=== PATIENT | female | born 1950 | race Caucasian/White ===

== ENCOUNTER → 2017-05-03 | Outpatient (CLI) | payer MEDICARE ==
[~2017-05-03] MED LIST: 00186-0370-20 IH; ALBUTEROL1.25 MG/3; AQUAPHOR1 OI1 TP; ASPIRIN 81M81 MG/TA2 PO; ATIVAN; ATIVAN2 MG PO; BUMEX0.5 MG PO; BUMEX2 MG; BUMEX2 MG PO; C-PAP; DEPAKENE 250 MG/1 ML; DEPAKENE250 MG PO; DILAUDID 2MG TAB2 MG PO; DOXYCYCLINE 10100 MG PO; ELAVIL; ELAVIL10 MG PO; EPIPEN 2-PAK1 MG/ML IM; FLONASE NASAL S16 GM NS; FORADIL IH; FUROSEMIDE; IPRATROPIUM BROM3 M1 IH; KEPPRA 500MG500 MG PO; KEPPRA1000 MG PO; KEPPRA750 MG PO; KLOR-CON M2020 MEQ PO; LAMICTAL; LASIX 40MG TABL40 MG PO; LASIX 80MG TABL80 MG PO; LEVAQUIN 750MG750 M1 PO; METOLAZONE; MONODOX100 PO; MUCINEX 60600 MG/TAB PO; MUCINEX DM 30 M1 TE1; NORCO 325 MG-101 TAB PO; NYSTATIN1 POW; OXYGEN; POTASSIUM CHLO10 ME2 PO; PREDNISONE10 MG PO; PREDNISONE20 MG PO; PREVACID; PREVACID 30MG30 M1 PO; REGLAN; REGLAN 10MG10 MG/TAB PO; RT ALBUTER2.5 MG/0.5 IH; RT SPIRIVA18 MCG IH; RYZOLT100 MG PO; SEROQUEL XR200 MG PO; SEROQUEL100 MG PO; SEROQUEL200 MG PO; SPIRIVA; SPIRIVA INH IH; TRAMADOL; TRAMADOL50 MG PO; VICODIN HP 10 PO; ZANTAC; ZANTAC 150MG T150 MG PO; ZANTAC 7575 MG PO; ZAROXOLYN5 MG PO; ZOFRAN 4MG T4 MG/TAB PO
[2017-05-03 17:10] LABS: TRICYCLIC ANTIDEPRESS URINE POSITIVE
== END ==
LOC: COL.LAB 15:11
PROVIDERS: Family Medicine
DX: M54.9 Dorsalgia, unspecified (principal); G89.29 Other chronic pain

== ENCOUNTER 2018-11-26 13:45 | Inpatient (IN) | payer MEDICARE, BC ==
[2018-11-26] VITALS (219 sets, daily range): BP systolic 92–152; BP diastolic 60–78; PULSE 105; TEMP 99.6–100.5; O2SAT 36–100
[~2018-11-26] VITALS: Ht 165.1 cm; Wt 92.8 kg
[2018-11-26 14:14] LABS: ARTERIAL BLD GAS O2 SATURATION 83.2 % (92-100); ARTERIAL BLOOD GAS BASE EXCESS 6.1 (-2-2); ARTERIAL BLOOD GAS HCO3 33.2 meq/L (22-26); ARTERIAL BLOOD GAS PCO2 58.3 mmHg (35-45); ARTERIAL BLOOD GAS pH 7.37 (7.35-7.45)
[2018-11-26 14:15] LABS: ARTERIAL BLOOD GAS PO2 44.4 mmHg (80-100)
[2018-11-26 14:23] LABS: HEMATOCRIT 40.7 % (37.0-47.0); HEMOGLOBIN 12.8 g/dl (12.5-16.0); MEAN CELL VOLUME 101 fl (80.0-100.0); MEAN CORPUSCULAR HEMOGLOBIN 32 pg (27.0-31.0); MEAN CORPUSCULAR HGB CONC 31 g/dl (33.0-37.0); MEAN PLATELET VOLUME 8.9 fl (7.4-10.4); PLATELET COUNT 165 K/mm3 (130-400); RED BLOOD COUNT 4.02 M/mm3 (4.10-5.30); REDCELL DISTRIBUTION WIDTH-CV 15.9 % (11.5-14.5)
[2018-11-26 14:27] LABS: COLLECTION METHOD CATHETER
[2018-11-26 14:31] LABS: ALBUMIN 3.7 gm/dL (3.5-5.0); BILIRUBIN,TOTAL 0.5 mg/dL (0.0-1.0); CALCIUM 8.5 mg/dL (8.4-10.2); CREATININE, serum 0.71 (0.52-1.25); POTASSIUM 3.8 mmol/L (3.4-5.0); TOTAL PROTEIN 7.4 gm/dL (6.4-8.2)
[2018-11-26 14:36] LABS: PROTHROMBIN TIME 11.8 SECONDS (9.7-12.8)
[2018-11-26 14:38] LABS: PARTIAL THROMBOPLASTIN TIME 34.3 SECONDS (26.0-37.0)
[2018-11-26 14:38] LABS: PH 6 (5-8); SQUAMOUS EPITHELIAL 0-2 /hpf; URINE APPEARANCE Clear; URINE BACTERIA Rare /hpf; URINE BILIRUBIN Negative (NEGATIVE); URINE BLOOD Negative (NEGATIVE); URINE COLOR Yellow; URINE GLUCOSE Negative (NEGATIVE); URINE KETONE Negative (NEGATIVE); URINE LEUKOCYTE ESTERASE Negative (NEGATIVE); URINE NITRATE Negative (NEGATIVE); URINE PROTEIN(semi-quant) Negative (NEGATIVE); URINE RBC None Seen /hpf; URINE UROBILINOGEN Negative (NEGATIVE)
[2018-11-26 14:43] LABS: TROPONIN-I 0.015 ng/mL (0.000-0.035)
--- NOTE | 2018-11-26 17:10 | NUR ---
Received patient in ICU room 4. Connected to courtesy booth cashier obtaining serial vitals. Dr Sadler notified of pt's continued low SPO2 and cyanosis. Orders received to repeat ABG and consult Pulm. RT notified. Pt is pulling at lines and tubes and saying she feels fine shes just tired and wants to go home.
[2018-11-26 17:29] LABS: ARTERIAL BLD GAS O2 SATURATION 90.3 % (92-100); ARTERIAL BLD GAS TCO2 CT 36.6; ARTERIAL BLOOD GAS BASE EXCESS 7.3 (-2-2); ARTERIAL BLOOD GAS HCO3 34.7 meq/L (22-26); ARTERIAL BLOOD GAS PCO2 62.1 mmHg (35-45); ARTERIAL BLOOD GAS PO2 57.8 mmHg (80-100); ARTERIAL BLOOD GAS pH 7.37 (7.35-7.45)
--- NOTE | 2018-11-26 17:38 | NUR ---
DR. CHAUDHRY GIVEN ABG RESULTS AT THIS TIME.
--- NOTE | 2018-11-26 17:50 | NUR ---
PT REMAINS ON 15L OXYMASK AT THIS TIME. SEVERAL ATTEMPTS HAVE BEEN MADE BY MYSELF AND RN TO GET PT TO PUT BIPAP BACK ON. AT THIS TIME WE HAVE BEEN UNSUCCESSFUL. BIPAP IS STILL ON STANDBY AND WILL BE ATTEMPTED AGAIN.
--- NOTE | 2018-11-26 19:35 | NUR ---
Bedside report received from PRASHANT Sims. Patient's family at the bedside.
--- NOTE | 2018-11-26 20:00 | NUR ---
Patient resting in bed breathing heavily with paradoxical respirations. Patient can only answer questions shortly as she is too breathless to answer. She is alert and confused. She follows commands but is continually trying to get out of bed. Patient states she has to pee. She has a catheter in place that is draining perfectly. Attempted to redirect patient with RT Amada, but patient keeps trying to exit the bed. She is currently on oxymask at 15L and O2 saturations are sitting between 88-90%. Patient's lungs are very diminished with very little air movement. HR and rhythm are regular and she is tachycardic. Bowel sounds active x4. Peripheral pulses are palpable. Patient has PVD and BLE are discolored with scaling and flaking. There are some open areas around the shins, especially on the left leg. Patient is excoriated under her breasts, barrier cream applied. Patient has small red dots all over her body, unclear what etiology. Patient has some generalized small bruising, various sizes and stages. Patient has some pain in her back, but when her family then asks a few minutes later, she denies having any pain. With the assistance of RT Amada, patient is convinced to wear the BiPAP, her son speaks with her and gets her to say yes. BiPAP placed and is tolerating ok. Will continue to monitor. ABG to be drawn in an hour. Call light within reach.
[2018-11-26 20:13] LABS: ANISOCYTOSIS 1+; BAND 15 % (0-10); BASOPHIL 1 % (0-2); LYMPHOCYTE 10 % (20.0-51.0); NEUTROPHILS 66 % (42.0-75.2); POLYCHROMASIA 1+
[2018-11-26 20:14] LABS: PLATELET ESTIMATE NORMAL (NORMAL)
[2018-11-26 20:57] LABS: TRICYCLIC ANTIDEPRESS URINE POSITIVE
--- NOTE | 2018-11-26 21:00 | NUR ---
Assisted with AGB draw at this time. Patient has spent the past hour being more restless and anxious with the BiPAP on. Patient continually has tried to pull the mask off. Family has been helping keep the mask on her. Will await results and call to Dr. Thomas.
[2018-11-26 21:17] LABS: ARTERIAL BLD GAS O2 SATURATION 95.6 % (92-100); ARTERIAL BLD GAS TCO2 CT 35.7; ARTERIAL BLOOD GAS BASE EXCESS 8.6 (-2-2); ARTERIAL BLOOD GAS HCO3 34.2 meq/L (22-26); ARTERIAL BLOOD GAS PCO2 50.5 mmHg (35-45); ARTERIAL BLOOD GAS PO2 73.2 mmHg (80-100); ARTERIAL BLOOD GAS pH 7.45 (7.35-7.45)
--- NOTE | 2018-11-26 21:35 | NUR ---
Dr. Thomas notified of ABG results. Patient continues to be uncooperative and has removed the BiPAP and is back on 15L OM. Dr. Thomas states he would like Dr. Berry called and notified, but his recommendation is to intubate. Called and discussed this with Dr. Berry. He also agrees to intubate and will come in to the hospital to place a central line. Anesthesia Notified and will be here soon.
--- NOTE | 2018-11-26 21:45 | NUR ---
Dr Berry here at this time and speaks to family. Anesthesia arrives shortly after. Consents for Intubation and Central Line placement obtained from patient's . 2152 - Time out performed. Amada RT and RT Carlee here to assist as well as PRASHANT Rosas. 2154 - Patient prepped for intubation. Anesthesia draws up medications from the RSI kit and gives them himself. Vitals obtained. 2202 - Patient intubated at this time. Vitals are stable 2206 - Intubation complete. Patient is attached to ventilator at this time. Anesthesia signs for medications and leaves. Vitals remain stable. 2207 - All unnecessary staff removed from the room and time out performed for Central line placement by Dr. Berry. All staff present are weaking masks for placement. 2210 - Central line placement begins at this time. Vitals have remained stable. 2230 - Jugular line in place at this time. Vitals continue to remain stable. 2240 - Central line complete at this time. Dressing placed and room cleaned. Radiology notified for stat chest xray. Vitals have remained stable through procedure, but patient is now becoming hypertensive as she wakes up. Will titrate medications for patient's comfort per order.
--- NOTE | 2018-11-26 22:30 | NUR ---
Verbal order from Dr. Berry to increase Propofol drip from 20mcg to 30mcg/kg/min as patient is trying to sit forward on the vent and is fighting the vent.
--- NOTE | 2018-11-26 23:10 | NUR ---
Patient continues to be very agitated on the vent with systolic BP hitting 200's. Dr. Berry gives verbal order to add on precedex drip. Initial bolus given then set at ordered starting rate.
[2018-11-27] VITALS (776 sets, daily range): BP systolic 121–162; BP diastolic 52–75; PULSE 60–87; TEMP 97.3–99.2; O2SAT 85–98
--- NOTE | 2018-11-27 | NUR ---
Patient resting on the vent. Is still intermittently agitated, will continue to titrate drips as ordered. Patient does not appear to be in any pain. Assessment complete. Lung sounds are more audible since the intubation, though she is still very diminished. No other changes from previous exam. Will continue to monitor.
[2018-11-27 00:29] LABS: ARTERIAL BLD GAS O2 SATURATION 96.2 % (92-100); ARTERIAL BLD GAS TCO2 CT 36.4; ARTERIAL BLOOD GAS BASE EXCESS 10.8 (-2-2); ARTERIAL BLOOD GAS PCO2 44.5 mmHg (35-45); ARTERIAL BLOOD GAS PO2 72.9 mmHg (80-100); ARTERIAL BLOOD GAS pH 7.51 (7.35-7.45)
--- NOTE | 2018-11-27 04:00 | NUR ---
Patient resting comfortably on the vent. Assessment complete and no changes from previous exam. Patient showing no signs of pain or distress. Will continue to monitor.
--- NOTE | 2018-11-27 04:26 | NUR ---
PT INTUBATED 11/26/18 AT 2203 WITH MAC 3, 7.5 ETT. 22 AT THE TEETH. INITIAL SETTINGS: 500 VT, 18 RATE, 5 PEEP, 60% FIO2.
--- NOTE | 2018-11-27 05:00 | NUR ---
Sedation vacation started at this time. Propofol and Precedex drips cut in half. Will continue to monitor.
[2018-11-27 05:13] LABS: ARTERIAL BLD GAS O2 SATURATION 96.5 % (92-100); ARTERIAL BLD GAS TCO2 CT 37.3; ARTERIAL BLOOD GAS BASE EXCESS 8.9 (-2-2); ARTERIAL BLOOD GAS HCO3 35.6 meq/L (22-26); ARTERIAL BLOOD GAS PCO2 57.4 mmHg (35-45); ARTERIAL BLOOD GAS PO2 84.7 mmHg (80-100); ARTERIAL BLOOD GAS pH 7.41 (7.35-7.45)
--- NOTE | 2018-11-27 05:50 | NUR ---
Patient is fully awake at this time and trying to get out of bed. She is fighting the vent and hyperventilating. Propofol and precedex increased at this time. Will titrate as needed
[2018-11-27 06:26] LABS: HEMATOCRIT 38.8 % (37.0-47.0); HEMOGLOBIN 12.2 g/dl (12.5-16.0); MEAN CELL VOLUME 100 fl (80.0-100.0); MEAN CORPUSCULAR HEMOGLOBIN 31 pg (27.0-31.0); MEAN CORPUSCULAR HGB CONC 31 g/dl (33.0-37.0); MEAN PLATELET VOLUME 9.7 fl (7.4-10.4); PLATELET COUNT 173 K/mm3 (130-400); RED BLOOD COUNT 3.88 M/mm3 (4.10-5.30); REDCELL DISTRIBUTION WIDTH-CV 15.7 % (11.5-14.5)
[2018-11-27 06:51] LABS: ANION GAP 7 mmol/L (7-16); BLOOD UREA NITROGEN 13 mg/dL (7-17); CALCIUM 7.8 mg/dL (8.4-10.2); CARBON DIOXIDE 36 mmol/L (22-30); CHLORIDE 94 mmol/L (98-107); CREATININE, serum 0.65 (0.52-1.25); GLUCOSE 215 mg/dL (74-106); MAGNESIUM 1.7 mg/dL (1.6-2.3); PHOSPHOROUS 3.8 mg/dL (2.5-4.5); POTASSIUM 3.3 mmol/L (3.4-5.0); SODIUM 137 mmol/L (137-145)
--- NOTE | 2018-11-27 07:00 | NUR ---
BEDSIDE REPORT RECEIVED FROM PRASHANT JACKSON. ALL IV LINES, TUBES, DRIPS, AND VENT SETTINGS REVIEWED. CARE TAKEN OVER AT THIS TIME.
--- NOTE | 2018-11-27 07:18 | NUR ---
Bedside report given to PRASHANT Zurita and PRASHANT Evans. All tubes, lines, and medications confirmed. Transfer of care at this time.
[2018-11-27 07:23] LABS: VALPROIC ACID (DEPAKENE) < 10.0 ug/mL (50.0-100.0)
[2018-11-27 07:42] LABS: BAND 4 % (0-10); EOSINOPHIL 1 % (0-4); LYMPHOCYTE 15 % (20.0-51.0); NEUTROPHILS 77 % (42.0-75.2); PLATELET ESTIMATE NORMAL (NORMAL)
--- NOTE | 2018-11-27 11:00 | NUR ---
WHEN TURNING PATIENT, SHE BECOMES VERY AGITATED. PROPOFOL INCREASED. I HAD TO STAY BEDSIDE WITH PATIENT FOR APPROXIMATELY 10 MINUTES UNTIL SHE CALMED DOWN. SHE WOKE UP FROM TURNING IN AN AGITATED STATE. WHEN I WAS TALKING TO HER TO EXPLAIN HER SITUATION, SHE WAS NOT TRACKING ME WITH HER EYES, NOT RESPONDING TO ANYTHING I WAS SAYING TO HER. SHE JUST CONTINUED TO TRY TO SIT UP AND REACH FOR ET TUBE.
--- NOTE | 2018-11-27 12:00 | NUR ---
HERE AT THIS TIME. HE IS UPDATED ON PLAN OF CARE AND QUESTIONS ANSWERED. SOCIAL WORK NOTIFIED OF HIS ARRIVAL.
--- NOTE | 2018-11-27 13:45 | NUR ---
HIGH SCHOOL MUSIC DIRECTOR student met with the patient (intubated) and the patient's , Rafael cell phone. The patient lives [place] of [place] with Rafael. The patient has a walker that she uses occassionally. The patient receives assistance with ADLs from Rafael. He reports the past two weeks she has refused assistance with ADLs. The patient receives medical care at [facility] in [place] and patient receives medications from [facility] and at times have difficulties affording medications. The patient does not have advanced directives in the EMR. The patient's informed HIGH SCHOOL MUSIC DIRECTOR student in the event that patient is to decline they have chosen a home. [facility] in [place] . career services representative will continue to follow.
--- NOTE | 2018-11-27 15:30 | NUR ---
PATIENT IS AGAIN, QUITE AGITATED WITH TURNING. I INCREASED ALL SEDATION MEDICATIONS AND GAVE PRN PUSH OF VERSED. IT TOOK HER OVER 30 MINUTES TO CALM DOWN AND RELAX BACK INTO A LIGHTLY SEDATED STATE. DAUGHTER AT BEDSIDE AND ASSISTED WITH PATIENT DURING THIS TIME, BY WAY FOR ENCOURAGING WORDS AND HAND HOLDING.
--- NOTE | 2018-11-27 17:00 | NUR ---
SPOKE WITH DR. COVARRUBIAS REGARDING BEING UNABLE TO WEAN PRECEDEX GTT. HE VERBALIZES UNDERSTANDING AND GIVE THE OK TO KEEP PRECEDEX PART OF PATIENT'S MEDICATION REGIMEN.
--- NOTE | 2018-11-27 19:03 | NUR ---
BEDSIDE REPORT GIVEN TO PRASHANT JACKSON. ALL LINES, TUBES, GTTS, AND VENT SETTINGS REVIEWED.
--- NOTE | 2018-11-27 19:30 | NUR ---
Bedside report received from PRASHANT Zurita. All lines, tubes, and medications confirmed. transfer of care at this time.
--- NOTE | 2018-11-27 20:00 | NUR ---
Patient resting comfortably on the vent. No signs of pain or distress. When patients name is called she moves her eyes and blinks, but does not stay awake. Assessment complete. Lungs are clear bilaterally with diminished bases. HR and rhythm are regular with normal S1 and S2 heard. Bowel sounds are hypoactive x4. Patient's OG placement confirmed by auscultation and aspiration of gastric contents. Peripheral pulses palpable in all extremities. Patient continues to have edema. Skin issues remain the same. Patient has no needs at this time. Will continue to monitor.
[2018-11-27 21:40] LABS: ARTERIAL BLD GAS O2 SATURATION 95.7 % (92-100); ARTERIAL BLD GAS TCO2 CT 24.1; ARTERIAL BLOOD GAS BASE EXCESS -1.7 (-2-2); ARTERIAL BLOOD GAS HCO3 22.9 meq/L (22-26); ARTERIAL BLOOD GAS PCO2 37.7 mmHg (35-45); ARTERIAL BLOOD GAS PO2 83.3 mmHg (80-100)
--- NOTE | 2018-11-27 23:15 | NUR ---
Patient is moderately sedated at this time. Will attempt to wean down propofol and precedex.
--- NOTE | 2018-11-27 23:50 | NUR ---
While in patient room, went to bedside and said patient's name, she opens her eyes wide and immediately sits forward on the vent. Tried to calm patient and have her relax back to the bed, but she refuses. Patient is not tracking movement with her eyes or following commands. Patient will not squeeze her left hand when asked. Right hand she tries to squeeze, but becomes too focused on trying to sit up. Propofol and precedex increased. Will continue to monitor.
[2018-11-28] VITALS (783 sets, daily range): BP systolic 121–174; BP diastolic 53–69; PULSE 58–76; TEMP 97.9–99.8; O2SAT 87–100
--- NOTE | 2018-11-28 | NUR ---
Patient continues to be restless, propofol increased again. It takes patient over 10mins to calm back down. Assessment complete. No changes from previous exam. Vitals remain stable. Will continue to monitor. Call light within reach.
--- NOTE | 2018-11-28 01:07 | NUR ---
DUE TO PT ABG TITRATED FIO2 FROM 60% TO 55% IF PT CAN KEEP SATURATION UP WITH FI02 CHANGE WILL KEEP WHERE IT IS. WILL ASSESS PT 02 LEVEL IN THE MORNING WITH THE AM ABG
--- NOTE | 2018-11-28 01:10 | NUR ---
Discussed patient's FIO2 settings with RT Aime. Will attempt to wean patient down. FIO2 dropped to 55%.
--- NOTE | 2018-11-28 04:00 | NUR ---
Patient resting on the vent, but she is awake and shaking profusely. Stayed with patient until she calmed down, closed her eyes, and stopped shaking. Unclear what woke her up. Assessment complete with no changes from previous exam. Vitals obtained and remain stable. Will continue to monitor.
--- NOTE | 2018-11-28 05:00 | NUR ---
Sedation Vacation not performed atpatient has been waking up at her current doses on propofol, precedex, and fentanyl. Will continue to monitor.
[2018-11-28 05:31] LABS: ARTERIAL BLD GAS O2 SATURATION 96.8 % (92-100); ARTERIAL BLD GAS TCO2 CT 30.6; ARTERIAL BLOOD GAS BASE EXCESS 2.7 (-2-2); ARTERIAL BLOOD GAS PCO2 52.1 mmHg (35-45); ARTERIAL BLOOD GAS PO2 91.6 mmHg (80-100); ARTERIAL BLOOD GAS pH 7.36 (7.35-7.45)
[2018-11-28 05:39] LABS: BASO % 0.2 % (0.0-2.0); GRAN # 7.8 (1.4-6.5); GRAN % 85.8 % (42.2-75.2); HEMATOCRIT 38.5 % (37.0-47.0); HEMOGLOBIN 12.1 g/dl (12.5-16.0); LYMPH # 0.5 (1.2-3.4); LYMPH % 5.8 % (20.0-51.0); MEAN CELL VOLUME 101 fl (80.0-100.0); MEAN CORPUSCULAR HEMOGLOBIN 32 pg (27.0-31.0); MEAN CORPUSCULAR HGB CONC 31 g/dl (33.0-37.0); MEAN PLATELET VOLUME 9.7 fl (7.4-10.4); MONO # 0.6 (0.1-0.6); MONO % 6.9 % (1.7-9.3); PLATELET COUNT 184 K/mm3 (130-400); REDCELL DISTRIBUTION WIDTH-CV 15.8 % (11.5-14.5)
[2018-11-28 05:50] LABS: CALCIUM 7.4 mg/dL (8.4-10.2); CREATININE, serum 0.57 (0.52-1.25); MAGNESIUM 2.6 mg/dL (1.6-2.3); PHOSPHOROUS 3.2 mg/dL (2.5-4.5); POTASSIUM 4.2 mmol/L (3.4-5.0)
--- NOTE | 2018-11-28 07:00 | NUR ---
REPORT RECEIVED FROM TIFFANY CERDA. ALL TUBES, LINES, AND VENT SETTINGS REVIEWED. CARE OF PATIENT TAKEN OVER AT THIS TIME.
--- NOTE | 2018-11-28 07:20 | NUR ---
Bedside report given to PRASHANT Evans and PRASHANT Zurita. All lines, tubes, and medications confirmed. Transfer of care at this time.
--- NOTE | 2018-11-28 12:02 | NUR ---
0930-VENT WEANING BEGAN WITH [facility] TEACHER AT BEDSIDE 0945-PROPOFOL PUT ON HOLD PER DR. COVARRUBIAS, PT BECAME VERY AGITATED AND COMBATIVE, TRYING TO KICK RN AT BEDSIDE. ATTEMPTED TO VERBALLY CALM PATIENT WITH NO SUCCESS, PATIENT PULLING AT WRIST RESTRAINTS AND FREQUENTLY TRYING TO SIT UP, PATIENT UNABLE TO FOLLOW VERBAL COMMANDS 1000-PROPOFOL TURNED BACK ON, VENT SETTINGS RETURNED PER DR. COVARRUBIAS VERBAL ORDER
--- NOTE | 2018-11-28 14:30 | NUR ---
PATIENT REPOSITIONED, BECAME AGITATED AND FREQUENTLY TRIED TO SIT UP IN BED. VERBALLY REASSURED AND TRIED TO CALM PATIENT. TOOK 30 MINUTES FOR PATIENT TO REST COMFORTABLY. FAMILY VISITED AT THIS TIME WELL, CONCERNED THAT THEY WERE WORKING HER UP SO LEFT SHORTLY AFTER.
--- NOTE | 2018-11-28 16:18 | NUR ---
PATIENT BP ELEVATED ABOVE 160, SEE FLOWSHEET, PRN GIVEN, SEE EMAR, WILL CONTINUE TO MONITOR
--- NOTE | 2018-11-28 18:14 | NUR ---
SEDATION VACATION ATTEMPTED WITH VENT WEAN EARLIER TODAY. PATIENT CONTINUES TO BECOME AGITATED WITH REPOSITIONING. RECEIVED NEW ORDERS PER DR. DANGELO TO CHANGE VERSED AND SLIDING SCALE INSULIN, SEE EMAR.
--- NOTE | 2018-11-28 21:55 | NUR ---
PT VERY RESTLESS. PT TRYING TO SIT UP AND PULL HER ARMS OUT OF RESTRAINTS. PT REASSURED MULTIPLE TIMES AND ENCOURAGED TO RELAX. SEDATION INCREASED ABLE. WILL CONTINUE TO MONTIOR.
[2018-11-29] VITALS (680 sets, daily range): BP systolic 113–174; BP diastolic 48–66; PULSE 65–93; TEMP 97.8–100; O2SAT 87–98
--- NOTE | 2018-11-29 02:09 | NUR ---
After Pt repositioned she became very restless. Trying to sit up in bed and pull at lines. Propofol increased. Pt still very restless and trying to sit up. Pt also fighting against the ventilator. Prn versed given. Pt now resting comfortably. Will continue to monitor.
--- NOTE | 2018-11-29 04:57 | NUR ---
0355- Pt very agitated. Pt trying to sit up in bed, pull at lines and tubes. This RN and charge entry clerk had help lay back down and tighten restains. Precedex increased. 0405: Pt still very restless. Trying to sit up and fighting the vent. PRN versed given. 0410: Pt finally resting comfortably. Will continue to montior closely.
[2018-11-29 05:06] LABS: ARTERIAL BLD GAS O2 SATURATION 93.6 % (92-100); ARTERIAL BLD GAS TCO2 CT 34.7; ARTERIAL BLOOD GAS BASE EXCESS 7.3 (-2-2); ARTERIAL BLOOD GAS HCO3 33.1 meq/L (22-26); ARTERIAL BLOOD GAS PCO2 51.7 mmHg (35-45); ARTERIAL BLOOD GAS PO2 66.3 mmHg (80-100); ARTERIAL BLOOD GAS pH 7.42 (7.35-7.45)
--- NOTE | 2018-11-29 05:18 | NUR ---
Pt very agitated and restless while on high sedation. Pt moving all extremities. Pt trying to sit up in bed. Pt not able to follow commands or answer yes/no questions. Pt was just given prn versed to get her to calm down. Will endorse to day RN. Will continue to monitor.
[2018-11-29 05:26] LABS: BASO % 0.1 % (0.0-2.0); GRAN # 5.9 (1.4-6.5); GRAN % 82.6 % (42.2-75.2); HEMATOCRIT 37.6 % (37.0-47.0); LYMPH # 0.6 (1.2-3.4); LYMPH % 7.7 % (20.0-51.0); MEAN CELL VOLUME 100 fl (80.0-100.0); MEAN CORPUSCULAR HEMOGLOBIN 32 pg (27.0-31.0); MEAN CORPUSCULAR HGB CONC 32 g/dl (33.0-37.0); MEAN PLATELET VOLUME 10.5 fl (7.4-10.4); MONO # 0.6 (0.1-0.6); MONO % 8.2 % (1.7-9.3); PLATELET COUNT 158 K/mm3 (130-400); RED BLOOD COUNT 3.78 M/mm3 (4.10-5.30); REDCELL DISTRIBUTION WIDTH-CV 15.8 % (11.5-14.5)
--- NOTE | 2018-11-29 05:29 | NUR ---
PT DOES NOT QUALIFY FOR WEANING TRIAL HER FI02 IS 55%. PT IS ON DOCUMENTED SETTINGS AND IS TESS WELL. SEDATION VACATION WILL NOT BE DONE PATIENT BECOME TO AGITATED. WILL NOTIFY DAY SHIFT RT AND WILL CONTINUE TO MONITOR AND ASSESS PT FOR THE TIME BEING.
[2018-11-29 05:39] LABS: CALCIUM 7.6 mg/dL (8.4-10.2); CREATININE, serum 0.57 (0.52-1.25); MAGNESIUM 2.4 mg/dL (1.6-2.3); PHOSPHOROUS 2.7 mg/dL (2.5-4.5); POTASSIUM 3.7 mmol/L (3.4-5.0)
--- NOTE | 2018-11-29 07:16 | NUR ---
PEEP DECREASED AT THIS TIME WELL FIO2 PER DR. COVARRUBIAS AT BEDSIDE.
--- NOTE | 2018-11-29 07:21 | NUR ---
PT ON TRIAL OF SIMV AT THIS TIME PER DR. COVARRUBIAS
[2018-11-29 16:34] LABS: CALCIUM 8.1 mg/dL (8.4-10.2); CREATININE, serum 0.58 (0.52-1.25); MAGNESIUM 2.3 mg/dL (1.6-2.3); PHOSPHOROUS 2.7 mg/dL (2.5-4.5); POTASSIUM 3.4 mmol/L (3.4-5.0)
[2018-11-30] VITALS (984 sets, daily range): BP systolic 100–135; BP diastolic 49–66; PULSE 67–92; TEMP 98.5–99.8; O2SAT 55–100
--- NOTE | 2018-11-30 02:45 | NUR ---
HOLD INSULIN FOR 30 MINS PER PROTOCOL. WILL RESTART AT 0315 AT 3.5 UNITS PER HOUR.
[2018-11-30 05:14] LABS: BASO % 0.1 % (0.0-2.0); GRAN # 6.8 (1.4-6.5); GRAN % 78.9 % (42.2-75.2); HEMATOCRIT 40.3 % (37.0-47.0); HEMOGLOBIN 12.9 g/dl (12.5-16.0); LYMPH # 0.7 (1.2-3.4); LYMPH % 8.6 % (20.0-51.0); MEAN CELL VOLUME 100 fl (80.0-100.0); MEAN CORPUSCULAR HEMOGLOBIN 32 pg (27.0-31.0); MEAN CORPUSCULAR HGB CONC 32 g/dl (33.0-37.0); MONO % 11.6 % (1.7-9.3); PLATELET COUNT 173 K/mm3 (130-400); RED BLOOD COUNT 4.04 M/mm3 (4.10-5.30); REDCELL DISTRIBUTION WIDTH-CV 15.9 % (11.5-14.5)
--- NOTE | 2018-11-30 05:24 | NUR ---
NO SEDATION VATION PT OPENING EYES WHEN BEING AWAKEN AND KNOWN TO BE AGIATATED/RESTLESS WHEN AWAKE ENOUGH. PER DR. COVARRUBIAS'S PLAN YESTERDAY, PT IS TO REMAIN ON VENTILATOR OVER THE WEEKENED AND WILL TRY WEANING ON SUNDAY. PT REMAINS ON FENTANYL, PROPOFOL AND PRECEDEX. WILL CONTINUE TO MONITOR.
[2018-11-30 05:30] LABS: CALCIUM 7.7 mg/dL (8.4-10.2); CREATININE, serum 0.6 (0.52-1.25); POTASSIUM 3.3 mmol/L (3.4-5.0)
--- NOTE | 2018-11-30 05:47 | NUR ---
Weaning assesment and trial postponed until dayshift per RN request.
[2018-11-30 13:47] LABS: COLLECTION METHOD CATHETER
[2018-11-30 14:10] LABS: MUCOUS Present /lpf; PH 6 (5-8); SQUAMOUS EPITHELIAL None Seen /hpf; URINE APPEARANCE Clear; URINE BACTERIA None Seen /hpf; URINE BILIRUBIN Negative (NEGATIVE); URINE BLOOD 1+ (NEGATIVE); URINE COLOR Yellow; URINE GLUCOSE Negative (NEGATIVE); URINE KETONE Negative (NEGATIVE); URINE LEUKOCYTE ESTERASE Negative (NEGATIVE); URINE NITRATE Negative (NEGATIVE); URINE PROTEIN(semi-quant) Negative (NEGATIVE)
--- NOTE | 2018-11-30 17:44 | NUR ---
PATIENT FLINCHES EYES IN REATION TO SPOUSES COMMANDS TO AWAKEN. pROVIDERS PLAN IS TO EXUBATE IN AM. PATIENT HAS HAD A DIFFICULT TIME SEDATION FROM et TUBE, AND BREATHING. LAST TWO HOURS HAVE BEEN RESTFULL
[2018-11-30 18:23] LABS: ARTERIAL BLD GAS O2 SATURATION 92.4 % (92-100); ARTERIAL BLD GAS TCO2 CT 34.6; ARTERIAL BLOOD GAS BASE EXCESS 7.3 (-2-2); ARTERIAL BLOOD GAS PO2 61.7 mmHg (80-100); ARTERIAL BLOOD GAS pH 7.43 (7.35-7.45)
--- NOTE | 2018-11-30 19:15 | NUR ---
Received report from PRASHANT Frias, and PRASHANT Miranda.
--- NOTE | 2018-11-30 22:00 | NUR ---
Upon initial shift assessment, patient was deeply sedated. She was unarousable to speech or to sternal rub. Patient briefly grimaced with first encounter, however, did not respond further except only to painful stimulation. BPs at this time were also beginning to decrease slightly. Propofol was reduced by 5 mcg/kg/min to 45 mcg/kg/min at 2055. Patient soon became more alert and progressed to restlessness within the hour. Patient was attempting to sit up in the bed and was moving her legs frequently. Propofol was titrated back to 50 mcg/kg/min at 2149. Will continue to monitor.
[2018-12-01] VITALS (954 sets, daily range): BP systolic 50–227; BP diastolic 24–94; PULSE 65–116; TEMP 98.9–100; O2SAT 85–100
[2018-12-01 04:52] LABS: BASO % 0.1 % (0.0-2.0); GRAN # 7.5 (1.4-6.5); GRAN % 87.3 % (42.2-75.2); HEMATOCRIT 39.7 % (37.0-47.0); HEMOGLOBIN 12.4 g/dl (12.5-16.0); LYMPH # 0.4 (1.2-3.4); LYMPH % 5.1 % (20.0-51.0); MEAN CELL VOLUME 101 fl (80.0-100.0); MEAN CORPUSCULAR HEMOGLOBIN 31 pg (27.0-31.0); MEAN CORPUSCULAR HGB CONC 31 g/dl (33.0-37.0); MONO # 0.6 (0.1-0.6); MONO % 6.9 % (1.7-9.3); PLATELET COUNT 172 K/mm3 (130-400); RED BLOOD COUNT 3.95 M/mm3 (4.10-5.30); REDCELL DISTRIBUTION WIDTH-CV 15.8 % (11.5-14.5)
[2018-12-01 04:59] LABS: ALBUMIN 3.3 gm/dL (3.5-5.0); BILIRUBIN,TOTAL 0.9 mg/dL (0.0-1.0); CALCIUM 7.7 mg/dL (8.4-10.2); CREATININE, serum 0.68 (0.52-1.25); MAGNESIUM 2.2 mg/dL (1.6-2.3); PHOSPHOROUS 4.4 mg/dL (2.5-4.5); POTASSIUM 3.6 mmol/L (3.4-5.0); TOTAL PROTEIN 6.7 gm/dL (6.4-8.2)
[2018-12-01 05:06] LABS: PRE ALBUMIN 21.4 mg/dL (17.6-36.0)
[2018-12-01 05:16] LABS: ARTERIAL BLD GAS O2 SATURATION 94.6 % (92-100); ARTERIAL BLD GAS TCO2 CT 35.6; ARTERIAL BLOOD GAS BASE EXCESS 8.1 (-2-2); ARTERIAL BLOOD GAS PCO2 52.3 mmHg (35-45); ARTERIAL BLOOD GAS pH 7.43 (7.35-7.45)
--- NOTE | 2018-12-01 06:19 | NUR ---
Patient's sedation vacation completed by titrating propofol to 45 mcg/kg/min. Patient is currently attemping vent weaning trial and is tolerating well. Opens eyes to speech and breaths on own and upon command. Vitals remain within normal limits. Will continue to monitor.
--- NOTE | 2018-12-01 07:00 | NUR ---
recieved bedside report from PRASHANT Cortez.
--- NOTE | 2018-12-01 07:00 | NUR ---
Report given to PRASHANT Miranda, and PRASHANT Torres.
--- NOTE | 2018-12-01 11:32 | NUR ---
Dr. Berry at pt bedside and stopped tube feedings, verbally ordered an ABG to determine if extubating pt is an option.
[2018-12-01 11:36] LABS: ARTERIAL BLD GAS O2 SATURATION 93.6 % (92-100); ARTERIAL BLOOD GAS HCO3 34.3 meq/L (22-26); ARTERIAL BLOOD GAS PCO2 54.7 mmHg (35-45); ARTERIAL BLOOD GAS PO2 67.1 mmHg (80-100); ARTERIAL BLOOD GAS pH 7.42 (7.35-7.45)
--- NOTE | 2018-12-01 11:40 | NUR ---
AT BEDSIDE AND SAID OK TO EXTUBATE,RT AT BEDSIDE WELL. FENTANYL AND PROPOFL TURNED OFF PER AND PROCESS OF EXTUBATION BEGAN.
--- NOTE | 2018-12-01 11:45 | NUR ---
PT HAD BEEN TOLERATING CPAP 09/09 SINCE 0500 THIS AM. ABG OBTAINED PER ORDER FROM DR. COVARRUBIAS AT BEDSIDE. AFTER RESULTS WERE GIVEN DR. COVARRUBIAS ORDERED FOR PATIENT TO BE EXTUBATED. NIF OF -22 WAS OBTAINED WITH A FAIR EFFORT. PT SUCTIONED FOR A SCANT AMOUNT OF SIMMS SECRETIONS PRIOR TO. HI LOW PORT WAS ALSO EMPTIED OF EXCESS SECRETIONS. PT EXTUBATED TO 5L OM. PT AT THIS TIME IS TOLERATING IT WELL. NO OBVIOUS SIGNS OF DISTRESS AT THIS TIME. NO STRIDOR AUSCULATATED AT THIS TIME. PT IS SITTING UP IN BED. WILL CONTINUE TO MONITOR PT.
--- NOTE | 2018-12-01 11:45 | NUR ---
PER , PROPOFOL AND FENTANYL SHUT OFF TO EXTUBATE PATIENT.
--- NOTE | 2018-12-01 11:45 | NUR ---
PT SUCCESSFULLY EXTUBATED AND PUT ON 5L OXYMASK. RESTRAINTS REMOVED, OG REMOVED. PT TOLERATED EXTUBATION WELL, NO FIGHT BACK.
--- NOTE | 2018-12-01 12:30 | NUR ---
PT O2 SATURATIONS RANGING FROM 85-86, INCREASED O2 TO 7L VIA OXYMASK. RT NOTIFIED.
--- NOTE | 2018-12-01 13:15 | NUR ---
PT O2 SATURATIONS STILL LOW AT 85, TRIED ADJUSTING HER HEAD OF BED AND POSITION AND DIDNT RESOLVE. TURNED O2 UP TO 10L VIA OXYMASK. RT NOTIFIED.
--- NOTE | 2018-12-01 13:44 | NUR ---
PT'S AND DAUGHTER VISITING PATIENT AT BEDSIDE, FAMILY UPDATED ON CARE AND HAD QUESTIONS THAT WERE ANSWERED BY NURSE. 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
--- NOTE | 2018-12-01 14:00 | NUR ---
PT O2 SATURATION ABOVE 90%. RT AT BEDSIDE AND SAID OK TO TURN DOWN TO 9L VIA OXYMASK.
--- NOTE | 2018-12-01 17:34 | NUR ---
PT BLOOD PRESSURES HIGH, CALLED AFTER ALREADY GIVING PRN FENTANYL. PRN HYDRALAZINE AND PRN ATIVAN. HE ORDERED 0.1MG OF PO CLONIDINE FOR SHORT TERM THERAPY.
--- NOTE | 2018-12-01 19:15 | NUR ---
Bedside report received from PRASHANT Torres and PRASHANT Miranda.
[2018-12-01 19:44] LABS: ARTERIAL BLD GAS TCO2 CT 34.9; ARTERIAL BLOOD GAS BASE EXCESS 7.4 (-2-2); ARTERIAL BLOOD GAS HCO3 33.3 meq/L (22-26); ARTERIAL BLOOD GAS PO2 59.6 mmHg (80-100); ARTERIAL BLOOD GAS pH 7.43 (7.35-7.45)
--- NOTE | 2018-12-01 20:00 | NUR ---
Patient sitting in bed at this time on BiPAP, looks to be in distress. Upon entrance into the room 40mins ago, patient looked to be in ditress. Patiet had a look of total panic on her face and was struggling to breathe. She had circumoral cyanosis and color was pale. she was breathing 32 bpm. Switched patient over from 10L OM to BiPAP with some improvement for about 20mins, then she started to decompensate again and saying she was SOA on the BiPAP despite high settings. Patient's face is now bright red and respirations between 35-40bpm, work of breathing has definitely increased. See physician notifications for orders from Dr Berry and KYUNG Zarco. Assessment complete. Patient is following commands and can only answer yes and no questions as she is too SOA to talk for any period. Lungs are coarse in the upper lobes with wheezes both insp/exp. Bases bilaterally are absent, patient has very little air movement. HR and rhythm are regular with normal S1 and S2, she is tachycardic and has been hypertensive. Bowel sounds active x4. Pulses palpable in all extremities. Will remain with patient while in distress.
--- NOTE | 2018-12-01 20:19 | NUR ---
Attempted to contact by all 3 numbers, 2 are disconnected with one on face sheet leading straight to voicemail. Left voicemail for him to call back.
--- NOTE | 2018-12-01 20:35 | NUR ---
Anesthesia here at this time to intubate. Prepared room, suction, and RSI kit. KYUNG Zarco in the room as well as RT Amada and RT Shilpi to help intubate. 2041 - Medications given by anesthesia at this time. BP remains stable. 2044 - Patient intubated at this time with 7.5 tube. Bilateral lungs sounds confirmed. Vitals remain stable. 2047 - Procedure ends at this time. Patient is attached to ventilator and tolerating with coughing. BP is becoming more hypertensive. 194/81. 2049 - 2 soft wrist restraints applied to patient.
--- NOTE | 2018-12-01 20:55 | NUR ---
Verbal order from KYUNG Zarco to start fentanyl at previous dose of 200mcg/hr.
--- NOTE | 2018-12-01 21:00 | NUR ---
Due to patient's agitation and hypertension, verbal order from KYUNG Zarco to increase fentanyl and give a 100mcg bolus, max out propofol at 50mcg/kg/min and give a 50mcg bolus, and max out precedex at 1.5mcg/kg/hr. Then titrate down as needed. Boluses given per IV pump under supervision of provider.
[2018-12-01 21:54] LABS: ARTERIAL BLD GAS O2 SATURATION 96.7 % (92-100); ARTERIAL BLD GAS TCO2 CT 32.1; ARTERIAL BLOOD GAS BASE EXCESS 3.8 (-2-2); ARTERIAL BLOOD GAS HCO3 30.5 meq/L (22-26); ARTERIAL BLOOD GAS PCO2 53.8 mmHg (35-45); ARTERIAL BLOOD GAS PO2 91.1 mmHg (80-100); ARTERIAL BLOOD GAS pH 7.37 (7.35-7.45)
--- NOTE | 2018-12-01 22:15 | NUR ---
Patient's BP is now hypotensive at 62/38. Called for assistance from PRASHANT Rosas. Drips titrated down. Patient does not awaken to stimulation to include turning, stimulating cough with vent suction, or sternal rub. Continued to try to stimulate patient while titrating drips down. Carolee here at this time and gives order for bolus of NS. Dr Stern comes over on room camera shortly after and gives orders for titrations (see intervention for IV titration). 2349 - Dr Stern leaves camera, will call back if needed. 2353 - BP back up to 123/46. Will titrate medications back up as tolerated. Dr. Stern has sent over orders for levophed if needed.
--- NOTE | 2018-12-01 22:38 | NUR ---
PT INTUBATED AT THIS TIME WITH 7.5 ETT, 22 AT THE TEETH.
--- NOTE | 2018-12-01 22:53 | NUR ---
Patient's BP above 110 systolic now. Ok to restart drips. To restart Fentanyl at 150mcg, Propofol at 30mcg, and Precedex at 1mcg per Dr Stern and to titrate per BP tolerance. See IV titrations for drip rates.
--- NOTE | 2018-12-01 23:09 | NUR ---
Verbal order from Dr. Stern to titrate medications more frequently per BP.
--- NOTE | 2018-12-01 23:49 | NUR ---
Patient's BP improving. Dr Stern departs off screen, says to call if any changes. Can start levophed if needed. Will titrate medications for sedation.
[2018-12-02] VITALS (954 sets, daily range): BP systolic 88–171; BP diastolic 37–65; PULSE 61–99; TEMP 98.1–99.4; O2SAT 77–99
--- NOTE | 2018-12-02 | NUR ---
Assessment complete at this time. No changes from previous exam except that lung sounds have improved since intubation. Lungs are clear in the upper lobes and diminished in the bases with LLL absent. Will continue to titrate medications.
--- NOTE | 2018-12-02 00:45 | NUR ---
Patient's BP dropping again. Levophed started at this time.
[2018-12-02 01:19] LABS: ARTERIAL BLD GAS O2 SATURATION 93.6 % (92-100); ARTERIAL BLD GAS TCO2 CT 32.1; ARTERIAL BLOOD GAS BASE EXCESS 3.9 (-2-2); ARTERIAL BLOOD GAS HCO3 30.4 meq/L (22-26); ARTERIAL BLOOD GAS PCO2 54.4 mmHg (35-45); ARTERIAL BLOOD GAS PO2 73.2 mmHg (80-100); ARTERIAL BLOOD GAS pH 7.37 (7.35-7.45)
[2018-12-02 02:11] LABS: BASO % 0.1 % (0.0-2.0); GRAN # 11.9 (1.4-6.5); GRAN % 87.6 % (42.2-75.2); HEMATOCRIT 42.5 % (37.0-47.0); HEMOGLOBIN 13.3 g/dl (12.5-16.0); LYMPH # 0.5 (1.2-3.4); LYMPH % 3.5 % (20.0-51.0); MEAN CELL VOLUME 101 fl (80.0-100.0); MEAN CORPUSCULAR HEMOGLOBIN 32 pg (27.0-31.0); MEAN CORPUSCULAR HGB CONC 31 g/dl (33.0-37.0); MEAN PLATELET VOLUME 10.2 fl (7.4-10.4); MONO # 1.1 (0.1-0.6); MONO % 7.8 % (1.7-9.3); PLATELET COUNT 235 K/mm3 (130-400); REDCELL DISTRIBUTION WIDTH-CV 15.9 % (11.5-14.5)
[2018-12-02 02:22] LABS: ALBUMIN 3.3 gm/dL (3.5-5.0); BILIRUBIN,TOTAL 0.9 mg/dL (0.0-1.0); CALCIUM 8.1 mg/dL (8.4-10.2); CREATININE, serum 0.72 (0.52-1.25); MAGNESIUM 2.3 mg/dL (1.6-2.3); PHOSPHOROUS 4.5 mg/dL (2.5-4.5); POTASSIUM 3.8 mmol/L (3.4-5.0); TOTAL PROTEIN 6.7 gm/dL (6.4-8.2)
[2018-12-02 02:29] LABS: PRE ALBUMIN 20.7 mg/dL (17.6-36.0)
--- NOTE | 2018-12-02 04:00 | NUR ---
Patient resting comfortably on the vent, she is awake more of the time than not, but appears comfortable. Assessment complete with no changes from previous exam. Vitals are stable. Will continue to monitor.
--- NOTE | 2018-12-02 05:00 | NUR ---
Sedation vacation not performed as patient is awake on the vent currently. Will continue to monitor
--- NOTE | 2018-12-02 07:27 | NUR ---
Bedside report given to PRASHANT Frias and PRASHANT Perdomo. All lines, tubes, and medications reviewed. Transfer of care at this time.
--- NOTE | 2018-12-02 07:30 | NUR ---
PRECEDEX IV DRIP [id number] TO 5.1, OBSERVATION ON PATIENT'S CONDITION
--- NOTE | 2018-12-02 07:48 | NUR ---
OETT PULLED BACK 2CM TO 21CM @ TEETH PER DR. COVARRUBIAS AND CXR RESULTS FROM THIS AM. PT TOLERATED IT WELL. NO INCIDENT.
--- NOTE | 2018-12-02 10:51 | NUR ---
Attempt times 2 to contact , phone just rings and no voice mail available.
--- NOTE | 2018-12-02 12:05 | NUR ---
Recieved call from patient's daughter, wanting to check in on patient status. Spoke with daughter at length about needing re-intubated, CT scan this AM, Dr. eBrry's request for family meeting, multiple calls to without return call. Daughter, Latrice, states patient and live in [place] and don't have good cell phone reception centre manager so that's why didn't return call. But did know they intubated patient last night and that Dr. Berry attempted to contact him but did not return calls to hospital. Asked daughter if family could meet for family meeting with Dr. Berry tomorrow 12/03 at 0800 here at this hospital. Daughter states yes, they will be here in AM to meet with MD for POC/Goal of care.
--- NOTE | 2018-12-02 13:32 | NUR ---
The hospitalist spoke to SQUILGEER student regarding placement in a long-term care facility. SQUILGEER student met with the patient's son, Chente and provided Medicare.gov list of LTAC facilities. The patient's nurse reports there will be a family meeting tomorrow, 12/[address] Berry. guest services manager will continue to follow.
[2018-12-02 16:02] LABS: ARTERIAL BLD GAS O2 SATURATION 95.1 % (92-100); ARTERIAL BLD GAS TCO2 CT 32.6; ARTERIAL BLOOD GAS BASE EXCESS 4.7 (-2-2); ARTERIAL BLOOD GAS PO2 75.8 mmHg (80-100); ARTERIAL BLOOD GAS pH 7.39 (7.35-7.45)
--- NOTE | 2018-12-02 17:05 | NUR ---
PRECEDEX D/C PER ORDER
--- NOTE | 2018-12-02 19:15 | NUR ---
NO CHNAGE PER PROTOCOL. INSULIN STILL ON HOLD.
--- NOTE | 2018-12-02 19:18 | NUR ---
REPORT TO SULTANA CERDA
--- NOTE | 2018-12-02 20:15 | NUR ---
INSULIN RE-STARTED AT 1.5 UNITS/HR SINCE IT WAS SUPPOSED TO BE STARTED AT THIS RATE AT 5. WILL KEEP MONITORING.
--- NOTE | 2018-12-02 22:15 | NUR ---
INSULIN DRIP AT 1.5 UNITS/HR, NO CHANGE MADE. THREE CONSECUTIVE VALUE AT DESIRED RANGE ACHIEVED, WILL RECHECK BS 0015.
--- NOTE | 2018-12-02 23:21 | NUR ---
AT 2056 [facility] WAS CALLED DUE TO PTS LOW SATURATIONS BETWEEN 87% TO 90% EVEN WITH AN INCREASE IN PTS FI02 FROM 50% TO 60%. AT 2118 [facility] CALLED WITH THE ORDER TO KEEP SATURATIONS 88% AND HIGHER AND TO INCREASE THE FI02 AND PEEP TO 8 NEEDED TO MAINTAIN THESE SATURATIONS. WITH THESE CHANGES THE SATURATIONS HAVE NOW INCREASED FROM MID 80'S TO LOW 90'S TO 97%.
--- NOTE | 2018-12-02 23:26 | NUR ---
PT THE INCREASE IN PEEP AND FI02 PTS SATURATIONS ARE BEING MAINTAINED IN THE HIGH 90'S. THEREFORE, THE FI02 WAS DECREASED BACK DOWN 50%. THE PEEP IS MAINTAINED AT 8 AND WILL BE DECREASED THE NIGHT GOES ON TO SEE IF PT CAN MAINTAIN SATURATIONS WITH HER ORIGIONAL SETTINGS.
[2018-12-03] VITALS (870 sets, daily range): BP systolic 77–185; BP diastolic 0–76; PULSE 66–98; TEMP 97.8–98.6; O2SAT 83–100
--- NOTE | 2018-12-03 00:11 | NUR ---
PT AWAKE AND APPEARS TO BE WATCHING TV, LOOKS COMFORTABLE MOST OF THE TIME. PT IS NOTED OF HAVING SOME TREMORS SOMETIMES, UNSURE IF PT DOING IT PURPOSELY A SIGN OF GETTING ANXIOUS SHE IS AWAKE. VSS. WILL CONTINUE TO MONITOR.
--- NOTE | 2018-12-03 00:27 | NUR ---
PT HAVING A LOT OF PACS AND PVS, HR WILL JUMP TO 140S AT TIMES, NON SUSTAINING. PT ASYMPTOMATIC. VSS. [facility] NOTIFIED AND NO NEW ORDERS GIVEN, WILL CONTINUE TO MONITOR.
--- NOTE | 2018-12-03 02:10 | NUR ---
PT'S BP AT 77/41 WITH MAP OF 55.
--- NOTE | 2018-12-03 02:15 | NUR ---
PT'S BP AT 77/41, LIAM TRACEY IN UNIT AND NOTIFIED, ORDERED 500 ML BOLUS.
--- NOTE | 2018-12-03 02:35 | NUR ---
BP STILL LOW AT 81/40.
--- NOTE | 2018-12-03 02:57 | NUR ---
BP BETTER AT 116/48 AT THIS TIME. WILL CONTINUE TO MONITOR.
--- NOTE | 2018-12-03 05:01 | NUR ---
NO SEDATION VACATION DONE PT IS ALREADY AWAKE ON VENT.
[2018-12-03 05:17] LABS: ARTERIAL BLD GAS O2 SATURATION 94.9 % (92-100); ARTERIAL BLOOD GAS BASE EXCESS 0.5 (-2-2); ARTERIAL BLOOD GAS HCO3 27.4 meq/L (22-26); ARTERIAL BLOOD GAS PCO2 53.2 mmHg (35-45); ARTERIAL BLOOD GAS PO2 74.6 mmHg (80-100); ARTERIAL BLOOD GAS pH 7.33 (7.35-7.45)
--- NOTE | 2018-12-03 05:59 | NUR ---
PT ON WEANING TRIAL 06/09. TESS WELL WITH NO DISTRESS NOTED WILL NOTIFY DAY SHIFT RT.
--- NOTE | 2018-12-03 08:15 | NUR ---
7 Family members present for Family meeting with MD Grace Berry SW and myself.
[2018-12-03 08:31] LABS: CALCIUM 8.1 mg/dL (8.4-10.2); CREATININE, serum 0.69 (0.52-1.25); HEMATOCRIT 41.1 % (37.0-47.0); HEMOGLOBIN 12.1 g/dl (12.5-16.0); MAGNESIUM 2.5 mg/dL (1.6-2.3); MEAN CELL VOLUME 106 fl (80.0-100.0); MEAN CORPUSCULAR HEMOGLOBIN 31 pg (27.0-31.0); MEAN CORPUSCULAR HGB CONC 29 g/dl (33.0-37.0); MEAN PLATELET VOLUME 10.6 fl (7.4-10.4); PHOSPHOROUS 4.2 mg/dL (2.5-4.5); PLATELET COUNT 259 K/mm3 (130-400); POTASSIUM 3.4 mmol/L (3.4-5.0); RED BLOOD COUNT 3.89 M/mm3 (4.10-5.30); REDCELL DISTRIBUTION WIDTH-CV 16.3 % (11.5-14.5)
--- NOTE | 2018-12-03 08:57 | NUR ---
GAS TREATER student attended family meeting with Dr. Berry, patient's nurse and seven members of the family were present. The patient is to have a trach and peg tube placement this day. Dr. Berry is recommending LTAC for the patient. The family chose [facility] in [place]. GAS TREATER student faxed referral to Renard at [facility]. The patient's daughter Latrice provided her phone number . Social service will continue to follow.
--- NOTE | 2018-12-03 09:14 | NUR ---
Bedside Bronchoscopy performed by MD Jamal. Prior to, procedural TimeOut completed with MD Jamal, FatimahRN and myself: Pt Name, , Allergies, Consent all covered and agreed upon by all staff. gave verbal orders to bolus 50mg of Propofol at 0910 and 0919 - orders carried out. Pt tolerated procedure well Family back in pt's room at 0930 - updated by MD Jamal - all questions answered.
[2018-12-03 10:00] LABS: BAND 2 % (0-10); EOSINOPHIL 1 % (0-4); LYMPHOCYTE 13 % (20.0-51.0); NEUTROPHILS 73 % (42.0-75.2); PLATELET ESTIMATE NORMAL (NORMAL)
[2018-12-03 10:03] LABS: ANISOCYTOSIS 1+
--- NOTE | 2018-12-03 10:58 | NUR ---
Renrad from [facility] reports they can accept the patient tomorrow, 12/04. Dr. Berry, the patient's nurse and patient's family were informed. All were in agreeance. Nurse to nurse . Number to fax discharge orders to . [facility] address: [address] [place] [id number]. financial services professional will continue to follow
[2018-12-03 11:25] LABS: ARTERIAL BLD GAS O2 SATURATION 97.9 % (92-100); ARTERIAL BLD GAS TCO2 CT 29.7; ARTERIAL BLOOD GAS BASE EXCESS 1.9 (-2-2); ARTERIAL BLOOD GAS HCO3 28.1 meq/L (22-26); ARTERIAL BLOOD GAS PO2 105.5 mmHg (80-100); ARTERIAL BLOOD GAS pH 7.37 (7.35-7.45)
--- NOTE | 2018-12-03 12:18 | NUR ---
Pt off unit, OR team and RT transported pt to OR
--- NOTE | 2018-12-03 14:00 | NUR ---
Pt returned from OR, all lines and tubes remain in place - pt was kept on ICU bed while in OR. 1500: pt able to follow commands. Geismar made based on non-verbal head nods that oral care that was completed at this time was positively recieved by pt. Education provided to pt and family members present
--- NOTE | 2018-12-03 15:39 | NUR ---
ARSH student contacted [facility] to set up tranportation for the patient. [facility] will transport the patient at noon on 12/04. ARSH student informed the patient's nurse and patient's daughter, Latrice, and Renard from [facility]. All were in agreeance. Renard reports the patient's room # is 118 and the accepting physician is Dr. Martin and Dr. Dudley will be the copying machine repairer. community services officer will continue to follow.
--- NOTE | 2018-12-03 16:51 | NUR ---
No sedation vacation performed d/t pt being able to non-verbally communicate and follow commands after procedure.
[2018-12-04] VITALS (359 sets, daily range): BP systolic 154–172; BP diastolic 64–67; PULSE 80–98; TEMP 98–100.3; O2SAT 74–99
--- NOTE | 2018-12-04 05:00 | NUR ---
Patient awake on sedation, no vacation at this time.
[2018-12-04 06:32] LABS: ARTERIAL BLD GAS O2 SATURATION 95.1 % (92-100); ARTERIAL BLD GAS TCO2 CT 31.1; ARTERIAL BLOOD GAS BASE EXCESS 3.7 (-2-2); ARTERIAL BLOOD GAS HCO3 29.6 meq/L (22-26); ARTERIAL BLOOD GAS PCO2 49.5 mmHg (35-45); ARTERIAL BLOOD GAS PO2 75.1 mmHg (80-100); ARTERIAL BLOOD GAS pH 7.39 (7.35-7.45)
[2018-12-04 07:06] LABS: HEMATOCRIT 42.2 % (37.0-47.0); MEAN CELL VOLUME 103 fl (80.0-100.0); MEAN CORPUSCULAR HEMOGLOBIN 32 pg (27.0-31.0); MEAN CORPUSCULAR HGB CONC 31 g/dl (33.0-37.0); MEAN PLATELET VOLUME 10.3 fl (7.4-10.4); PLATELET COUNT 259 K/mm3 (130-400); REDCELL DISTRIBUTION WIDTH-CV 16.1 % (11.5-14.5)
[2018-12-04 07:35] LABS: CALCIUM 8.5 mg/dL (8.4-10.2); CREATININE, serum 0.6 (0.52-1.25); MAGNESIUM 2.5 mg/dL (1.6-2.3); PHOSPHOROUS 3.3 mg/dL (2.5-4.5); POTASSIUM 3.7 mmol/L (3.4-5.0)
[2018-12-04 08:23] LABS: BAND 15 % (0-10); EOSINOPHIL 1 % (0-4); LYMPHOCYTE 9 % (20.0-51.0); METAMYELOCYTE 2 % (0-0); NEUTROPHILS 62 % (42.0-75.2); PLATELET ESTIMATE NORMAL (NORMAL)
--- NOTE | 2018-12-04 08:50 | NUR ---
Renard with [facility] here to see patient. Speaks with social work and Dr. Berry. WOuld like to transfer to this AM instead of later today DT winter weather advisory, everyone in agreement and Social Work will arrange EMS for transfer.
--- NOTE | 2018-12-04 09:24 | NUR ---
Garfield from [facility] reports they cannot transport the patient this day due to weather conditions but would be able tomorrow. Garfield suggest to try [facility]. MANAGER AUTO student contacted Marielos with [facility] [phone] and they can transport the patient this day. MANAGER AUTO student informed the patient's family, nurse and housefellow, all were in agreeance. MANAGER AUTO student faxed discharge orders to [facility] . MANAGER AUTO student attempted to contact the patient's to obtain veralization of the IM form. The patient's did not answer. MANAGER AUTO student contacted the patient's daughter, Latrice. MANAGER AUTO student verbally presented the IM form over the phone. Daughter was in agreeance. A copy will be mailed to the family and original was placed in the chart. There are no additional needs at this time.
--- NOTE | 2018-12-04 10:15 | NUR ---
PT TRANSFERRED TO [facility].
--- NOTE | 2018-12-04 10:20 | NUR ---
[facility] here to get patient for transfer. Report given to EMT-P, reviewed drips and pumps. RT at bedside and helps with transition to EMS' vent. Daughter at bedside to see patient off. Belongings sent with patient via EMS, daughter aware and states ok.
== END 2018-12-04 10:20 | disposition short-term general hospital (02) | DRG 4 ==
LOC: COL.ER 13:45 → ICU 16:12
PROVIDERS: Emergency Medicine; Internal Medicine; Internal Medicine Pulmonary Disease; Nurse Practitioner Family; Physician Assistant; Surgery; ADMIT Student in an Organized Health Care Education/Training Program
PROC: 0BH17EZ Insertion of Endotracheal Airway into Trachea, Via Natural or Artificial Opening (ICD-10-PCS; principal; 2018-11-26)
PROC: 5A1955Z Respiratory Ventilation, Greater than 96 Consecutive Hours (ICD-10-PCS; 2018-11-26)
PROC: 02HV33Z Insertion of Infusion Device into Superior Vena Cava, Percutaneous Approach (ICD-10-PCS; 2018-11-26)
PROC: 0BH17EZ Insertion of Endotracheal Airway into Trachea, Via Natural or Artificial Opening (ICD-10-PCS; 2018-12-01)
PROC: 5A1945Z Respiratory Ventilation, 24-96 Consecutive Hours (ICD-10-PCS; 2018-12-01)
PROC: 0B9F8ZZ Drainage of Right Lower Lung Lobe, Via Natural or Artificial Opening Endoscopic (ICD-10-PCS; 2018-12-03)
PROC: 0B988ZZ Drainage of Left Upper Lobe Bronchus, Via Natural or Artificial Opening Endoscopic (ICD-10-PCS; 2018-12-03)
PROC: 0DH63UZ Insertion of Feeding Device into Stomach, Percutaneous Approach (ICD-10-PCS; 2018-12-03)
PROC: 06HY33Z Insertion of Infusion Device into Lower Vein, Percutaneous Approach (ICD-10-PCS; 2018-12-03)
PROC: 0B110F4 Bypass Trachea to Cutaneous with Tracheostomy Device, Open Approach (ICD-10-PCS; 2018-12-03 13:30)
DX: J44.1 Chronic obstructive pulmonary disease with (acute) exacerbation (principal); J96.21 Acute and chronic respiratory failure with hypoxia; J18.9 Pneumonia, unspecified organism; J96.22 Acute and chronic respiratory failure with hypercapnia; G93.40 Encephalopathy, unspecified; I50.22 Chronic systolic (congestive) heart failure; G47.33 Obstructive sleep apnea (adult) (pediatric); F31.9 Bipolar disorder, unspecified; M79.7 Fibromyalgia; G89.4 Chronic pain syndrome; I87.8 Other specified disorders of veins; I73.9 Peripheral vascular disease, unspecified; E87.6 Hypokalemia; G40.909 Epilepsy, unspecified, not intractable, without status epilepticus; E66.9 Obesity, unspecified; E11.65 Type 2 diabetes mellitus with hyperglycemia; I95.9 Hypotension, unspecified; I27.20 Pulmonary hypertension, unspecified; F17.210 Nicotine dependence, cigarettes, uncomplicated; Z79.891 Long term (current) use of opiate analgesic; Z99.81 Dependence on supplemental oxygen; Z90.710 Acquired absence of both cervix and uterus; Z68.37 Body mass index [BMI] 37.0-37.9, adult; Z89.429 Acquired absence of other toe(s), unspecified side; Z87.891 Personal history of nicotine dependence; Z88.2 Allergy status to sulfonamides; Z88.5 Allergy status to narcotic agent; Z88.1 Allergy status to other antibiotic agents; Z88.6 Allergy status to analgesic agent
CPT/HCPCS: 99223-AI; 99232-AI; 99239; A4216; A4314; C1751; J0360; J0692; J1650; J1815; J1953; J2060; J2250; J2310; J2370; J2704; J2920; J2930; J3010; J3475; J3480; J7030; J7060; Q9967